=== PATIENT | male | born 1960 | race Caucasian/White ===

== ENCOUNTER 2018-09-08 09:59 | Outpatient (REF) | payer OTHER, SELFPAY ==
[2018-09-08 19:42] LABS: ALT 22 U/L (12-78); AST 13 U/L (15-37); Albumin 4.2 g/dL (3.4-5.0); Alkaline Phosphatase 67 U/L (46-116); Anion Gap 7.8 mmol/L (3-11); BUN 21 mg/dL (7-18); Bilirubin, Total 0.5 mg/dL (0.2-1.0); CO2 28.2 mmol/L (21.0-32.0); Calcium 8.8 mg/dL (8.5-10.1); Chloride 104 mmol/L (98-107); Cholesterol 249 mg/dL (50-200); Glucose 104 mg/dL (70-100); HDL Cholesterol 54 mg/dL (40-60); LDL CHOLESTEROL 169 mg/dL (<100); Sodium 140 mmol/L (136-145); Total Protein 7.2 g/dL (6.4-8.2); Triglyceride 98 mg/dL (30-150)
== END 2018-09-08 10:19 ==
LOC: NCHCN 09:59
PROVIDERS: PCP Physician Assistant Medical; Visit Provider Physician Assistant Medical
DX: Z00.00 Encounter for general adult medical examination without abnormal findings (principal); Z13.228 Encounter for screening for other metabolic disorders; Z13.220 Encounter for screening for lipoid disorders
CPT/HCPCS: 80053; 80061; 83721

== ENCOUNTER 2019-03-24 09:02 | Outpatient (REF) | payer OTHER, SELFPAY | END 2019-03-24 09:22 | LOC: NCHCN 09:02 | PROVIDERS: PCP Physician Assistant Medical; Visit Provider Physician Assistant Medical | DX: R69 Illness, unspecified (principal) ==

== ENCOUNTER 2019-03-25 07:14 | Outpatient (CLI) | payer OTHER, SELFPAY ==
[2019-03-25 08:41] LABS: Hemoglobin A1C 5.3 % (4.5-6.2)
[2019-03-25 09:01] LABS: Calculated LDL 153 mg/dL; Cholesterol 234 mg/dL (50-200); HDL Cholesterol 68 mg/dL (40-60); Triglyceride 67 mg/dL (30-150)
== END 2019-03-25 07:34 ==
PROVIDERS: PCP Physician Assistant Medical; Visit Provider Physician Assistant Medical
DX: E78.5 Hyperlipidemia, unspecified (principal); R73.01 Impaired fasting glucose
CPT/HCPCS: 36415; 80061; 83721; 83036

== ENCOUNTER 2019-07-20 08:44 | Outpatient (REF) | payer OTHER, SELFPAY ==
[2019-07-20 22:16] LABS: ALT 29 U/L (16-63); AST 17 U/L (15-37); Albumin 4.3 g/dL (3.4-5.0); Alkaline Phosphatase 56 U/L (46-116); Anion Gap 10.5 mmol/L (3-11); BUN 17 mg/dL (7-18); Bilirubin, Total 0.6 mg/dL (0.2-1.0); CO2 25.5 mmol/L (21.0-32.0); CREATININE 1.03 mg/dL (0.70-1.30); Calcium 8.8 mg/dL (8.5-10.1); Calculated LDL 115 mg/dL; Chloride 103 mmol/L (98-107); Cholesterol 193 mg/dL (50-200); Glucose 98 mg/dL (70-100); HDL Cholesterol 63 mg/dL (40-60); Potassium 4.5 mmol/L (3.5-5.1); Sodium 139 mmol/L (136-145); Total Protein 7.3 g/dL (6.4-8.2); Triglyceride 77 mg/dL (30-150)
== END 2019-07-20 09:04 ==
LOC: NCHCN 08:44
PROVIDERS: PCP Physician Assistant Medical; Visit Provider Physician Assistant Medical
DX: E78.5 Hyperlipidemia, unspecified (principal); Z51.81 Encounter for therapeutic drug level monitoring
CPT/HCPCS: 80053; 80061

== ENCOUNTER 2020-05-20 01:03 | Outpatient (CLI) | payer OTHER, SELFPAY ==
[2020-05-21 20:29] LABS: COVID-19 RT-PCR Result NEGATIVE (Negative)
== END 2020-05-20 01:23 ==
PROVIDERS: PCP Physician Assistant Medical; Visit Provider Student in an Organized Health Care Education/Training Program
DX: G56.01 Carpal tunnel syndrome, right upper limb (principal); G56.21 Lesion of ulnar nerve, right upper limb; M77.01 Medial epicondylitis, right elbow
CPT/HCPCS: U0003

== ENCOUNTER 2020-05-25 06:12 | Day surgery (SDC) | payer OTHER, SELFPAY ==
[2020-05-25 06:31] VITALS: BP 131/94; PULSE 58; RESP 18; TEMP 36.2; O2SAT 94
[2020-05-25] MEDS: Lactated Ringers 1,000 ML 80 ML IV (06:50)
--- NOTE | 2020-05-25 07:10 | PDOC.DSDIS_ITS ---
Discharge Plan Disposition Patient Disposition: HOME Condition: Good Discharge Details Reason For Visit: Right Cubital and Carpal Tunnel Syndromes Attending Provider: Elijah Lopes Primary Care Provider: Junior Sanderson Home Meds and New Rx's Prescriptions: New hydrocodone-acetaminophen 5-325 mg tablet 1 tab PO Q4H PRN (Reason: pain) Qty: 10 RF: 0 acetaminophen 500 mg tablet 500 mg PO Q6H PRN PRN (Reason: pain) Qty: 60 RF: 3 ibuprofen 600 mg tablet 600 mg PO TID PRNQty: 60 RF: 3 Continued amitriptyline 25 mg tablet 25 mg PO DAILY RF: 0 atorvastatin 10 mg tablet 10 mg PO DAILY RF: 0 sildenafil 50 mg tablet 50 mg PO DAILY PRNRF: 0 tamsulosin [Flomax] 0.4 MG capsule 0.4 mg PO DAILY RF: 0 lisinopril 5 MG tablet 5 mg PO DAILY RF: 0 Fish Oil 1 EACH capsule 1 ea PO DAILY RF: 0 omeprazole 40 MG capsule,delayed release(DR/EC) 40 mg PO DAILY@0730 Qty: 30 RF: 5 Discontinued ibuprofen 200 mg Capsule 200 mg PO Q6H PRNRF: 0 Discharge Instructions Additional Instructions: Activity: You should stay in the sling for the first 2 weeks. You may come out of the sling for gentle motion and hygiene but should largely remain in the sling to allow the incision site to heal. Gentle motion of the elbow, hand, wrist, and fingers is okay and encouraged after the first few days, but no repetitive activities nor heavy lifting. You may apply ice. Medications: - You should take Tylenol and Ibuprofen around the clock. - You have been prescribed Hydrocodone for breakthrough pain. Dressings: - The initial surgical dressing should stay in place for 3 days. It may then be removed and kept clean and dry. You should cover with a light gauze dressing or bandaid. - You may shower after 3 days and get the wound wet. Follow-up: 10 days Referrals: Elijah Lopes MD [ [facility] STAFF PHYSICIAN] - Equipment/Supplies: Sling Activity:: Activity as Tolerated Remove Dressings/Wound Care:: 72 hours Shower/Bathe:: 72 hours Diet:: As Tolerated Discharge Orders Discharge Orders: Discharge Order (Routine); Ordered 05/25/20 Ordered By: Elijah Lopes DS: Diagnosis Discharge Diagnosis (1) Right carpal tunnel syndrome: Status: Acute (2) Cubital tunnel syndrome on right: Status: Acute
[2020-05-25] MEDS: ceFAZolin 2 GM/50 ML BAG IVPB (07:29)
[2020-05-25] MEDS: Sodium Bicarbonate 50 MEQ/50 ML VIAL (07:53)
[2020-05-25 09:06] VITALS: BP 132/86; PULSE 58; RESP 18; TEMP 36; O2SAT 97
--- NOTE | 2020-05-25 10:29 | ROE_ITS ---
Date of service: 05/25/20 Time of Service: 08:20 Operative Note Operative Note DATE OF PROCEDURE: 05/25/20 PRE-OP DIAGNOSIS: Right Carpal Tunnel and Right Cubital Tunnel Syndrome POST-OP DIAGNOSIS: same PROCEDURE: Right Endoscopic Carpal Tunnel Release and Right Cubital Tunnel Decompression SURGEON: Elijah Lopes BIOMEDICAL ENGINEER: Elle Rich ANESTHESIA: GETA ESTIMATED BLOOD LOSS: 0 PATHOLOGY: none sent TOURNIQUET TIME: 24 COMPLICATIONS: None Patient was transported to: PACU Patient's condition: stable Indications: Edwin is a 59 year old male who has had symptoms of carpal and cubital tunnel syndrome. Nonoperative treatment options had been trialed. Nerve conduction studies identified the carpal and cubital tunnel as the point of compression. Given failure of nonoperative treatments and persistent symptoms, I offered operative intervention. I reviewed the technical details of a carpal tunnel release and cubital tunnel decompression with possible anterior subcutaneous transposition. I reviewed the risk of the procedure to include bleeding, infection, pain, stiffness, tendon instability, damage to the superfi cial radial nerve, and complete release. Despite these risks, the patient elected to proceed. Findings: The carpal tunnel was release with a standard endoscopic technique without difficulty and excellent visualization. There was a tightened cubital tunnel. [OTHER] The ulnar nerve was release from the first motor branch distally through the [place] proximally. Procedure Description: Edwin was greeted in the preoperative holding area where the correct side was identified and marked. The consent was reviewed with the patient and signed. The history and physical was updated. All questions were answered. Edwin was taken back to the operating room. The patient was placed into the s upine position on the operating room table with the right arm on an arm board. A nonsterile tourniquet was placed high onto the arm, into the axilla. All bony prominences were well padded. Prophylactic antibiotics in the form of Cefazolin were administered. The right arm was then prepped with Chloraprep and draped in a standard fashion with stockinette and extremity drape. A timeout to confirm correct identity, side and site, procedure, allergies, anesthesia, and medical concerns was performed. The surgical site was marked in the volar wrist creases in line with the radial border of the fourth ray. This area was anesthetized with approximately 6cc of 1% Lidocaine. The limb was then exsanguinated with an Esmarch. The skin was incised with a 15 blade, approximately 1cm. The skin only was cut and the deeper tissue was dissected bluntly with a tenotomy scissor, avoiding passing nerve and venous structures. The fascia was penetrated and opened bluntly. A two-prong skin hook was placed under this proximal fascial edge. A series of hamate finders were used to identify and dilate the carpal tunnel. Synovial elevator was used to free synovial attachments to the underside of the transverse carpal ligament. My thumb was kept in the palm to cassandra the distal extent of the carpal tunnel and correctly position the hand. The Microaire endoscope was inserted without difficulty and without resistance. Excellent visualization showed horizontally running fibers of the transverse carpal ligament (TCL). The distal extent of the TCL was visualized and the end of the scope palpated with the thumb. The blade was elevated and withdrawn from distal to proximal. The TCL was split into two flaps. The endoscope was reinserted to confirm complete release and any remnant ligament was incised. The scope was withdrawn and the proximal aspect of the carpal tunnel was grossly inspected and appeared release with the median nerve visible. The antebrachial fascia at the level of the wrist was then freed from the overlying skin and then the underlying median nerve with blunt dissection. This was transected longitudinally for about 3cm proximal to the wrist incision. The wound was then irrigated with easy flow of irrigant distally and proximally. The incision was closed with a single 4-0 Nylon suture. The wound was dressed with Xeroform, Gauze, Kerlix. Attention was then turned to the elbow. The surgical site was drawn on the skin as was the medial epicondyle borders. The planned surgical field was anesthetized with 1% Lidocaine with epinephrine. The limb was exsanguinated and the tourniquet was inflated where it stayed for 24 minutes. A 6 cm incision was made curvilinearly around the medial elbow. The skin was incised only. The deep tissue and subcutaneous fat was dissected with a tenotomy scissors trying to protect any branches of the medial antebrachial cutaneous nerve. Any branches that were identified were retracted out of the way. The ulnar nerve was palpated and identified. A small window into the cubital tunnel, sheath overlying the nerve, was created and the nerve was able to be palpated with the [place]. A Metzenbaum scissor was then used to open up the sheath starting with Dias's ligament. I then worked distal over the ulnar nerve releasing any constraints against the nerve all the way to the fascia of the FCU muscle belly. This muscle belly was bluntly all the way down to the first motor branch of the ulnar nerve and the overlying fascia was incised. Likewise starting there at the lateral epicondyle, I proceeded to work proximally to release any constraints over the ulnar nerve. This was taken all the way to the arcade of [place]. The medial intermuscular septum was also palpated and any sharp edges against the ulnar nerve were resected and released. After fully releasing the nerve it was inspected visually. I was also able to palpate the nerve fully and reach one finger up into the proximal and distal aspects to make sure there were no constraints against the nerve. A freer elevator was also used to slide easily against the ulnar nerve without any points of constriction. The arm was then taken through range of motion. The ulnar nerve did not sublux/dislocate out of its groove behind the lateral epicondyle. Therefore, no transposition was performed. The tourniquet was then deflated. Any areas of bleeding were cauterized with bipolar electrocautery. The wound was thoroughly irrigated. The deep tissue was closed with a 3-0 Vicryl. The skin was closed with a 4-0 nylon. The wound was dressed with Xeroform, 4 x 4's, ABD, Kerlix and an Jeromy wrap. Edwin was placed into a sling. Edwin was transferred back to the PACU in a stable condition.
== END 2020-05-25 09:55 | disposition home or self-care (01) ==
PROVIDERS: PCP Physician Assistant Medical; Visit Provider Student in an Organized Health Care Education/Training Program
PROC: 01N54ZZ Release Median Nerve, Percutaneous Endoscopic Approach (ICD-10-PCS; CPT 29848; principal; 2020-05-25 07:30)
DX: G56.01 Carpal tunnel syndrome, right upper limb (principal); G56.21 Lesion of ulnar nerve, right upper limb
CPT/HCPCS: 64719; 29848; J0690; J1100; J1885; J2001; J2405; L3650

== ENCOUNTER 2020-08-26 09:18 | Outpatient (CLI) | payer BC, SELFPAY ==
[2020-08-29 17:08] LABS: COVID-19 RT-PCR Result NEGATIVE (Negative)
== END 2020-08-26 09:38 ==
PROVIDERS: PCP Physician Assistant Medical; Visit Provider Student in an Organized Health Care Education/Training Program
DX: Z11.59 Encounter for screening for other viral diseases (principal); Z01.818 Encounter for other preprocedural examination
CPT/HCPCS: U0003

== ENCOUNTER 2020-08-30 09:28 | Day surgery (SDC) | payer BC, SELFPAY ==
--- NOTE | 2020-08-30 08:32 | W.PM.DSUDISC ---
Documented by User: Elle Rich 08/30/20 09:57 Discharge Plan Disposition Patient Disposition: HOME Condition: Good Discharge Details Reason For Visit: Right carpal tunnel syndrome Attending Provider: Elijah Lopes Primary Care Provider: Junior Sanderson Home Meds and New Rx's Prescriptions: Continued atorvastatin 10 mg tablet 10 mg PO DAILY RF: 0 sildenafil 50 mg tablet 50 mg PO DAILY PRNRF: 0 tamsulosin [Flomax] 0.4 MG capsule 0.4 mg PO DAILY RF: 0 lisinopril 5 MG tablet 5 mg PO DAILY RF: 0 Fish Oil 1 EACH capsule 1 ea PO DAILY RF: 0 omeprazole 40 MG capsule,delayed release(DR/EC) 40 mg PO DAILY@0730 Qty: 30 RF: 5 Discontinued acetaminophen 500 mg tablet 500 mg PO Q6H PRN PRN (Reason: pain) Qty: 60 RF: 3 ibuprofen 600 mg tablet 600 mg PO TID PRNQty: 60 RF: 3 Discharge Instructions Additional Instructions: Open Carpal Tunnel Release Discharge Instructions Activity: You should keep the hand/wrist elevated as much as possible for the first few days. You may use the other fingers as tolerated but avoid trying to do too much too soon. You may perform light activities with the dressing in place. The splint may be used to help support the wrist for pain control. You may remove it as you'd desire to work on gentle motion. Avoid strenuous or repetitive gripping. Dressing: You should keep the dressing in place for 3 days. After that you may remove dressing and cover incision with a light gauze dressing or large band-aid. Medications: - You should take Tylenol and Ibuprofen for baseline pain control. - You were previously prescribed a stronger pain medication, Hydrocodone-Acetaminophen, for breakthrough pain that you may take if needed. - You may apply ice over the wrist, just double bag so it doesn't get wet. Follow-up: 7-10 days Referrals: Elijah Lopes MD [ [facility] STAFF PHYSICIAN] - Equipment/Supplies: Splint and Sling Activity:: Elevate Remove Dressings/Wound Care:: 72 hours Shower/Bathe:: 72 hours Activity:: Activity as Tolerated Diet:: As Tolerated Discharge Orders Discharge Orders: Discharge Order (Routine); Ordered 08/30/20 Ordered By: Elle Rich DS: Diagnosis Discharge Diagnosis (1) Right carpal tunnel syndrome: Status: Acute Documented by User: Elijah Lopes MD 08/30/20 11:24 Discharge Plan Disposition Patient Disposition: HOME Condition: Good Discharge Details Reason For Visit: Right carpal tunnel syndrome Attending Provider: Elijah Lopes Primary Care Provider: Junior Sanderson Home Meds and New Rx's Prescriptions: Continued atorvastatin 10 mg tablet 10 mg PO DAILY RF: 0 sildenafil 50 mg tablet 50 mg PO DAILY PRNRF: 0 tamsulosin [Flomax] 0.4 MG capsule 0.4 mg PO DAILY RF: 0 lisinopril 5 MG tablet 5 mg PO DAILY RF: 0 Fish Oil 1 EACH capsule 1 ea PO DAILY RF: 0 omeprazole 40 MG capsule,delayed release(DR/EC) 40 mg PO DAILY@0730 Qty: 30 RF: 5 Discontinued acetaminophen 500 mg tablet 500 mg PO Q6H PRN PRN (Reason: pain) Qty: 60 RF: 3 ibuprofen 600 mg tablet 600 mg PO TID PRNQty: 60 RF: 3 Discharge Instructions Additional Instructions: Open Carpal Tunnel Release Discharge Instructions Activity: You should keep the hand/wrist elevated as much as possible for the first few days. You may use the other fingers as tolerated but avoid trying to do too much too soon. You may perform light activities with the dressing in place. The splint may be used to help support the wrist for pain control. You may remove it as you'd desire to work on gentle motion. Avoid strenuous or repetitive gripping. Dressing: You should keep the dressing in place for 3 days. After that you may remove dressing and cover incision with a light gauze dressing or large band-aid. Medications: - You should take Tylenol and Ibuprofen for baseline pain control. - You were previously prescribed a stronger pain medication, Hydrocodone-Acetaminophen, for breakthrough pain that you may take if needed. - You may apply ice over the wrist, just double bag so it doesn't get wet. Follow-up: 7-10 days Referrals: lEijah Lopes MD [ [facility] STAFF PHYSICIAN] - Equipment/Supplies: Splint and Sling Activity:: Elevate Remove Dressings/Wound Care:: 72 hours Shower/Bathe:: 72 hours Activity:: Activity as Tolerated Diet:: As Tolerated Discharge Orders Discharge Orders: Discharge Order (Routine); Ordered 08/30/20 Ordered By: Elle Rich
[2020-08-30 10:02] VITALS: BP 128/90; PULSE 54; RESP 18; TEMP 36.4; O2SAT 93
[2020-08-30] MEDS: Lactated Ringers 1,000 ML 80 ML IV (10:15)
[2020-08-30] MEDS: ceFAZolin 2 GM/50 ML BAG IVPB (10:30)
[2020-08-30] MEDS: Sodium Bicarbonate 50 MEQ/50 ML VIAL (11:19)
--- NOTE | 2020-08-30 11:24 | W.PM.OP ---
Date of service: 08/30/20 Time of Service: 11:24 Operative Note Operative Note DATE OF PROCEDURE: 08/30/20 PRE-OP DIAGNOSIS: Right Carpal Tunnel Syndrome POST-OP DIAGNOSIS: same PROCEDURE: Open Carpal Tunnel Release - Right SURGEON: Elijah Lopes ANESTHESIA: MAC ESTIMATED BLOOD LOSS: 10 PATHOLOGY: none sent TOURNIQUET TIME: 0 COMPLICATIONS: None Patient was transported to: same day Patient's condition: stable Indications: Edwin is a 59 year old male who I have seen for carpal tunnel syndrome. He underwent in the scopic carpal tunnel release but never had an improvement in symptoms. We follow this conservatively and repeat nerve conduction studies now show any changes and therefore I recommended that we perform a revision carpal tunnel release in an open fashion. I reviewed the risk of the procedure to include bleeding, infection, pain, stiffness, continued numbness, damage to nerves and vessels, damage to muscles and tendons, need for repeat procedures. Despite these risk, Edwin desired to proceed. Findings: There was a tightened transverse carpal ligament. There was an obvious area that was previously released on the ulnar aspect of the transverse carpal ligament however it did not seem to be full-thickness and there was one band at the distal extent which do not seem to be released fully. Interestingly, the median nerve was quite adherent to the undersurface of the transverse carpal ligament. It was released fully released. The median nerve was inspected and showed no signs of adhesions or injury. Procedure Description: Edwin was greeted in the preoperative holding area. The correct site was identified and marked. The consent was reviewed the patient and signed. The history physical was updated. Patient was taken back to the operating room and placed in the supine position with the right hand placed on a hand table. A nonsterile tourniquet was placed high up onto the arm. The hand and forearm was then prepped with ChloraPrep and draped in standard fashion. Prophylactic antibiotics in the form of Cefazolin were given. A timeout was performed for safe surgery. The surgical site was then injected and anesthetized with 1% lidocaine with epinephrine buffered with sodium bicarbonate. The radial border of the fourth ray was marked on the skin as well as any other pertinent surface anatomy. The limb was exsanguinated and cuff inflated to 250 mmHg. Using 15 blade the skin was incised sharply. Blunt dissection was carried down to the level of the palmar fascia. There is any amount of bleeding the hand had a purplish red color which indicated that the tourniquet was not working properly so the tourniquet was deflated after only a few minutes and was not reinflated. I inspected the transverse carpal ligament which shows some diastases on the ulnar aspect where the previous release was likely performed. However, there was no complete separation transverse carpal ligament superficially. Additionally, there seem to be a tight band just distal to this as well. I used this unable to place a [place] underneath the transverse carpal ligament and then cut down sharply onto the [place]. Using the [place] to protect underlying tendons and the median nerve, I released the remainder of the transverse carpal ligament. It was notably thickened and tight. Interestingly, there is notable adhesion of the median nerve to the undersurface of the transverse carpal ligament. The nerve did look quite inflamed. I performed a neurolysis gently around the median nerve to free it from the overlying transverse carpal ligament and from some of the synovium within the carpal tunnel. The nerve was inspected and showed no signs of direct injury or trauma. A scissor was used to complete the far aspects after making sure there is no interposed tissue. I did not perform a complete synovectomy was in the carpal tunnel nor a complete neurolysis simply enough to remove any adhesions from median nerve and surrounding tissue. The wound was then fully irrigated. The skin and deeper tissues were closed with a interrupted 4-0 nylon suture. No excessive bleeding from the wound. 4 x 4 gauze was applied followed by Kerlix wrap and an Jeromy wrap. The hand was placed into a removable brace. At the end the case all counts are correct. The patient tolerated the procedure well and was transferred back to the day surgery area in a stable condition.
[2020-08-30 11:52] VITALS: BP 124/82; PULSE 50; RESP 18; TEMP 36.3; O2SAT 93
== END 2020-08-30 12:20 | disposition home or self-care (01) ==
LOC: SUR 08-31 09:25 → PDS 08-31 09:26
PROVIDERS: PCP Physician Assistant Medical; Visit Provider Student in an Organized Health Care Education/Training Program
PROC: (CPT 64721; principal; 2020-08-30 11:00)
DX: G56.01 Carpal tunnel syndrome, right upper limb (principal); M96.89 Other intraoperative and postprocedural complications and disorders of the musculoskeletal system; G56.11 Other lesions of median nerve, right upper limb
CPT/HCPCS: 64721; J0690; J1885; J2001; J2405; J2704

== ENCOUNTER 2020-11-16 13:20 | Outpatient (REF) | payer BC, SELFPAY ==
[2020-11-16 16:14] LABS: Abs Immature Grans 0.02 10^3/uL (0.0-0.06); Absolute Basophil Count 0.04 10^3/uL (0.0-0.2); Absolute Eosinophil Count 0.37 10^3/uL (0.0-0.7); Absolute Lymphocyte Count 1.51 10^3/uL (1.2-3.4); Absolute Monocyte Count 0.77 10^3/uL (0.1-0.8); Absolute Neutrophil Count 3.57 10^3/uL (1.2-6.7); Basophils % 0.6; Eosinophils % 5.9; HCT 44.7 % (40.0-50.0); HGB 15.1 g/dL (13.5-17.5); Immature Grans % 0.3; MCH 30.2 pg (27.0-33.0); MCHC 33.8 % (32.0-36.0); MCV 89.4 fL (80-95); MPV 10.6 fL (8.0-11.0); Monocytes % 12.3; Neutrophils % 56.9; Nucleated RBC 0 %; Platelet Count 266 10^3/uL (130-400); RDW 12.7 % (11.8-14.1); RDW-SD 41.6 fL; WBC 6.28 10^3/uL (4.4-10.8)
[2020-11-16 17:47] LABS: BUN 22 mg/dL (7-18); Calcium 9.3 mg/dL (8.5-10.1); Calculated LDL 84 mg/dL (<100); Chloride 103 mmol/L (98-107); Cholesterol 164 mg/dL (<200); Glucose 79 mg/dL (74-106); HDL Cholesterol 64 mg/dL (40-60); Potassium 4.9 mmol/L (3.5-5.1); Sodium 139 mmol/L (136-145); Triglyceride 84 mg/dL (<150)
== END 2020-11-16 13:21 | disposition home or self-care (01) ==
LOC: NCHCN 13:20
PROVIDERS: PCP Physician Assistant Medical; Visit Provider Physician Assistant Medical
DX: R06.00 Dyspnea, unspecified (principal); I10 Essential (primary) hypertension
CPT/HCPCS: 80048; 80061; 85025

== ENCOUNTER 2020-11-18 03:48 | Outpatient (CLI) | payer BC, SELFPAY ==
--- NOTE | 2020-11-18 09:57 | DI.RAD_ITS ---
EXAM: XR CHEST 2V PA LATERAL CLINICAL HISTORY: DYSPNEA, NEG COVID TEST TECHNIQUE: 2D digital imaging was performed. COMPARISON: CT CT CHEST W from 12/20/2017 FINDINGS: The heart size is normal. The aorta is tortuous but normal in diameter. The lungs are clear. No in filtrate, effusion or pulmonary edema is seen. There are no visible emphysematous or fibrotic change s. There are minimal degenerative changes in the spine. IMPRESSION: No acute pulmonary findings. DATA REPOSITORY: RADIATION DOSE DELIVERED:
== END 2020-11-18 04:08 ==
PROVIDERS: PCP Physician Assistant Medical; Visit Provider Physician Assistant Medical
DX: R06.09 Other forms of dyspnea (principal)
CPT/HCPCS: 71046

== ENCOUNTER 2021-04-14 16:20 | Outpatient (REF) | payer BC, SELFPAY ==
[2021-04-16 11:03] LABS: COVID-19 RT-PCR UVMMC Result Negative (Negative)
== END 2021-04-14 16:21 | disposition home or self-care (01) ==
LOC: NCHCN 16:20
PROVIDERS: PCP Physician Assistant Medical; Visit Provider Physician Assistant Medical
DX: Z20.822 Contact with and (suspected) exposure to COVID-19 (principal)
CPT/HCPCS: U0003

== ENCOUNTER 2021-04-19 19:00 | Outpatient (REF) | payer BC, SELFPAY ==
[2021-04-21 15:38] LABS: COVID-19 RT-PCR UVMMC Result Negative (Negative)
== END 2021-04-19 19:01 | disposition home or self-care (01) ==
LOC: NCHCN 19:00
PROVIDERS: PCP Physician Assistant Medical; Visit Provider Physician Assistant Medical
DX: Z20.822 Contact with and (suspected) exposure to COVID-19 (principal)
CPT/HCPCS: U0003

== ENCOUNTER 2021-07-10 12:08 | Outpatient (REF) | payer BC, SELFPAY ==
[2021-07-12 12:06] LABS: COVID-19 RT-PCR UVMMC Result Negative (Negative)
== END 2021-07-10 12:09 | disposition home or self-care (01) ==
LOC: NCHCN 12:08
PROVIDERS: PCP Physician Assistant Medical; Visit Provider Physician Assistant Medical
DX: Z20.822 Contact with and (suspected) exposure to COVID-19 (principal); J18.9 Pneumonia, unspecified organism
CPT/HCPCS: U0003

== ENCOUNTER 2021-10-09 15:08 | Outpatient (REF) | payer BC, SELFPAY ==
[2021-10-09 21:25] LABS: Abs Immature Grans 0.03 10^3/uL (0.0-0.06); Absolute Basophil Count 0.03 10^3/uL (0.0-0.2); Absolute Eosinophil Count 0.29 10^3/uL (0.0-0.7); Absolute Lymphocyte Count 1.58 10^3/uL (1.2-3.4); Absolute Monocyte Count 0.57 10^3/uL (0.1-0.8); Absolute Neutrophil Count 4.61 10^3/uL (1.2-6.7); Basophils % 0.4; Eosinophils % 4.1; HCT 44.3 % (40.0-50.0); HGB 14.5 g/dL (13.5-17.5); Immature Grans % 0.4; Lymphocytes % 22.2; MCH 30.2 pg (27.0-33.0); MCHC 32.7 % (32.0-36.0); MCV 92.3 fL (80-95); MPV 10.4 fL (8.0-11.0); Neutrophils % 64.9; Nucleated RBC 0 %; Platelet Count 329 10^3/uL (130-400); RDW 13.3 % (11.8-14.1); RDW-SD 45.6 fL; WBC 7.11 10^3/uL (4.4-10.8)
[2021-10-09 21:51] LABS: ALT 26 U/L (16-63); AST 19 U/L (15-37); Albumin 4.2 g/dL (3.4-5.0); Alkaline Phosphatase 64 U/L (46-116); Anion Gap 9.9 mmol/L (3-11); BUN 15 mg/dL (7-18); Bilirubin, Total 0.5 mg/dL (0.2-1.0); CO2 25.1 mmol/L (21.0-32.0); CREATININE 0.9 mg/dL (0.70-1.30); Calcium 8.7 mg/dL (8.5-10.1); Chloride 102 mmol/L (98-107); Glucose 85 mg/dL (74-106); Potassium 4.7 mmol/L (3.5-5.1); Sodium 137 mmol/L (136-145); Total Protein 7.2 g/dL (6.4-8.2)
== END 2021-10-09 15:09 | disposition home or self-care (01) ==
LOC: NCHCN 15:08
PROVIDERS: PCP Physician Assistant Medical; Visit Provider Physician Assistant Medical
DX: J18.9 Pneumonia, unspecified organism (principal)
CPT/HCPCS: 80053; 85025

== ENCOUNTER 2021-10-27 00:27 | Outpatient (CLI) | payer BC, SELFPAY ==
--- NOTE | 2021-10-27 | DI.CT_ITS ---
Exam(s) CT CHEST W EXAM: CT CHEST W CLINICAL HISTORY: PNEUMONIA, J18.9 TECHNIQUE: Imaging Protocol: Axial computed tomography images with coronal and sagittal reformatted images were created and reviewed CONTRAST MATERIAL: Intravenous: Omnipaque 350 Contrast volume:100 mL. COMPARISON: CT CT CHEST W from 12/20/[address] ABDOMEN PELVIS W from 12/20/2017 FINDINGS: The examination is limited due to patient motion artifact. Tracheobronchial tree: Patent where visualized. Pulmonary parenchyma: No consolidation or dominant measurable mass. No architectural distortion. Mediastinum and [place]: No dominant adenopathy or fluid collection. Small hiatal hernia. Esophagus is otherwise unremarkable. Thyroid gland: Unremarkable. Pleura: No effusion or pneumothorax. Heart: The heart is not dilated. Coronary artery calcifications are present. No pericardial effusion . Aorta: Thoracic aorta non-dilated. Mild atherosclerosis. Upper abdomen: Unremarkable. Pulmonary arteries: Enhancement of the pulmonary arteries is inadequate for evaluation of pulmonary e mboli. Lymph nodes: Within normal limits. Bones: Within normal limits for the patient's age. Soft tissues: Unremarkable. IMPRESSION: No acute pulmonary process. RADIATION DOSE DELIVERED: 595.1mGy.cm Total DLP DATA REPOSITORY: All CT scans at this facility are submitted to the National Radiology Data Registry (NRDR) Dose Index Registry (DIR) with the [employer] (A[employer]). RADIATION OPTIMIZATION: All CT scans at this facility use at least one of these dose optimization te chniques: automated exposure control; mA and/or kV adjustment per patient size (includes targeted exa ms where dose is matched to clinical indication); or iterative reconstruction.
[2021-10-27] MEDS: Omnipaque 350 MG/ML 100 ML BTL IJ (07:51)
== END 2021-10-27 00:47 ==
PROVIDERS: PCP Physician Assistant Medical; Visit Provider Physician Assistant Medical
DX: J18.9 Pneumonia, unspecified organism (principal)
CPT/HCPCS: 71260; J3490

== ENCOUNTER 2021-12-28 13:16 | Outpatient (REF) | payer BC, SELFPAY ==
[2021-12-28 15:49] LABS: Abs Immature Grans 0.03 10^3/uL (0.0-0.06); Absolute Basophil Count 0.05 10^3/uL (0.0-0.2); Absolute Eosinophil Count 0.64 10^3/uL (0.0-0.7); Absolute Lymphocyte Count 1.23 10^3/uL (1.2-3.4); Absolute Monocyte Count 0.51 10^3/uL (0.1-0.8); Absolute Neutrophil Count 5.33 10^3/uL (1.2-6.7); Basophils % 0.6; Eosinophils % 8.2; HCT 45.4 % (40.0-50.0); Immature Grans % 0.4; Lymphocytes % 15.8; MCH 29.9 pg (27.0-33.0); MCV 90.4 fL (80-95); MPV 10.5 fL (8.0-11.0); Monocytes % 6.5; Neutrophils % 68.5; Platelet Count 316 10^3/uL (130-400); RBC 5.02 10^6/uL (4.36-5.78); RDW 13.1 % (11.8-14.1); RDW-SD 43.7 fL; WBC 7.79 10^3/uL (4.4-10.8)
[2021-12-28 16:44] LABS: Anion Gap 7.4 mmol/L (3-11); BUN 20 mg/dL (7-18); CO2 27.6 mmol/L (21.0-32.0); Calcium 8.8 mg/dL (8.5-10.1); Chloride 104 mmol/L (98-107); Glucose 112 mg/dL (74-106); Magnesium 1.9 mg/dL (1.8-2.4); Potassium 4.4 mmol/L (3.5-5.1); Sodium 139 mmol/L (136-145); TSH (W/Ref FT4) 0.47 uIU/mL (0.36-3.74)
== END 2021-12-28 13:17 | disposition home or self-care (01) ==
LOC: LBN 13:16
PROVIDERS: PCP Physician Assistant Medical; Visit Provider Family Medicine
DX: R00.2 Palpitations (principal)
CPT/HCPCS: 80048; 83735; 84443; 85025

== ENCOUNTER 2022-01-01 05:24 | Outpatient (CLI) | payer BC, SELFPAY ==
[2022-01-01] MEDS: Methacholine 100 MG VIAL IH (09:32)
[2022-01-01] MEDS: Albuterol HFA 18 GM 200 PUFF INH IH (09:32)
[2022-01-01] MEDS: Inhaler, Assist Device 1 EACH MC (09:32)
== END 2022-01-01 05:25 | disposition home or self-care (01) ==
LOC: NCHCN 05:25 → RT 09:13
PROVIDERS: PCP Physician Assistant Medical; Visit Provider Physician Assistant Medical
DX: R06.00 Dyspnea, unspecified (principal); R05.3 Chronic cough; Z86.16 Personal history of COVID-19; Z87.891 Personal history of nicotine dependence; Z77.090 Contact with and (suspected) exposure to asbestos; T75.89XA Other specified effects of external causes, initial encounter; R94.2 Abnormal results of pulmonary function studies
CPT/HCPCS: 94060; 94070; 94726; 94729; 94010; J7674

== ENCOUNTER 2022-01-10 16:39 | Outpatient (REF) | payer BC, SELFPAY ==
[2022-01-10 17:25] LABS: Calculated LDL 114 mg/dL (<100); Cholesterol 216 mg/dL (<200); HDL Cholesterol 88 mg/dL (40-60); Triglyceride 74 mg/dL (<150)
== END 2022-01-10 16:40 | disposition home or self-care (01) ==
LOC: NCHCN 16:39
PROVIDERS: PCP Physician Assistant Medical; Visit Provider Physician Assistant Medical
DX: E78.5 Hyperlipidemia, unspecified (principal)
CPT/HCPCS: 80061

== ENCOUNTER 2022-02-14 04:17 | Outpatient (CLI) | payer BC, SELFPAY | END 2022-02-14 04:18 | disposition home or self-care (01) | LOC: RT 04:17 | PROVIDERS: PCP Physician Assistant Medical; Visit Provider Physician Assistant Medical | DX: R00.2 Palpitations (principal) | CPT/HCPCS: 93246 ==

== ENCOUNTER 2022-05-08 19:20 | Outpatient (REF) | payer BC, SELFPAY ==
[2022-05-08 15:35] LABS: Abs Immature Grans 0.03 10^3/uL (0.0-0.06); Absolute Basophil Count 0.04 10^3/uL (0.0-0.2); Absolute Eosinophil Count 0.34 10^3/uL (0.0-0.7); Absolute Lymphocyte Count 1.55 10^3/uL (1.2-3.4); Absolute Monocyte Count 0.52 10^3/uL (0.1-0.8); Absolute Neutrophil Count 3.44 10^3/uL (1.2-6.7); Basophils % 0.7; ESR 1 mm/hr (0-20); Eosinophils % 5.7; HCT 42.8 % (40.0-50.0); HGB 14.3 g/dL (13.5-17.5); Immature Grans % 0.5; Lymphocytes % 26.2; MCH 30.7 pg (27.0-33.0); MCHC 33.4 % (32.0-36.0); MCV 92 fL (80-95); MPV 10.4 fL (8.0-11.0); Monocytes % 8.8; Neutrophils % 58.1; Platelet Count 270 10^3/uL (130-400); RBC 4.66 10^6/uL (4.36-5.78); RDW 12.5 % (11.8-14.1); RDW-SD 41.5 fL; WBC 5.92 10^3/uL (4.4-10.8)
[2022-05-08 16:05] LABS: C-Reactive Protein 0.07 mg/dL (0.0-0.3); Uric Acid 6.7 mg/dL (3.5-7.2)
== END 2022-05-08 19:21 | disposition home or self-care (01) ==
LOC: NCHCN 19:20
PROVIDERS: PCP Physician Assistant Medical; Visit Provider Physician Assistant Medical
DX: M25.531 Pain in right wrist (principal)
CPT/HCPCS: 85652; 84550; 85025; 86140

== ENCOUNTER → 2022-05-08 21:39 | Outpatient (CLI) | payer BC, SELFPAY ==
--- NOTE | 2022-05-08 11:23 | DI.RAD_ITS ---
Exam(s) XR WRIST RT COMPLETE EXAM: XR WRIST RT COMPLETE CLINICAL HISTORY: RIGHT WRIST PAIN-M25.53 TECHNIQUE: COMPARISON: No exams were available for comparison FINDINGS: Three views were obtained. There is marked deformity of the navicular and lunate bones with marked f lattening of the bones and there are severe secondary degenerative changes at the radiocarpal joints. Distal carpal row appears fairly well maintained. IMPRESSION: RADIATION DOSE DELIVERED: Total DLP
== END ==
PROVIDERS: PCP Physician Assistant Medical; Visit Provider Physician Assistant Medical
DX: M21.931 Unspecified acquired deformity of right forearm (principal); M19.231 Secondary osteoarthritis, right wrist
CPT/HCPCS: 73110

== ENCOUNTER 2022-09-04 15:30 | Outpatient (REF) | payer BC, SELFPAY ==
[2022-09-04 15:58] LABS: Bilirubin Negative (Negative); Blood Moderate (Negative); Clarity Clear (Clear); Glucose Negative (Negative); Ketones Trace mg/dL (Negative); Leukocyte Esterase Negative (Negative); Nitrite Negative (Negative); Specific Gravity 1.025 (1.005-1.025); Urobilinogen 0.2 EU/dL (Up TO 0.2)
[2022-09-04 16:25] LABS: Bacteria Rare HPF (Negative); C & S Indicated? No; Casts 3-5 Hyaline LPF (Negative); Crystals Negative HPF (Negative); Epithelial Cells Rare HPF (Negative); Mucus Trace (Negative); WBC Negative HPF (0-5)
== END 2022-09-04 15:31 | disposition home or self-care (01) ==
LOC: NCHCN 15:30
PROVIDERS: PCP Physician Assistant Medical; Visit Provider Physician Assistant Medical
DX: R10.9 Unspecified abdominal pain (principal)
CPT/HCPCS: 81003; 81015

== ENCOUNTER 2023-08-06 19:23 | Outpatient (REF) | payer BC, SELFPAY ==
[2023-08-06 15:26] LABS: ALT 24 U/L (16-63); AST 21 U/L (15-37); Albumin 4.2 g/dL (3.4-5.0); Alkaline Phosphatase 77 U/L (46-116); BUN 15 mg/dL (7-18); Bilirubin, Total 0.8 mg/dL (0.2-1.0); CREATININE 0.9 mg/dL (0.70-1.30); Calcium 9.1 mg/dL (8.5-10.1); Calculated LDL 120 mg/dL (<100); Chloride 103 mmol/L (98-107); Cholesterol 209 mg/dL (<200); Estimated GFR 96.57 (mL/min/1.73m2); Glucose 98 mg/dL (74-106); HDL Cholesterol 75 mg/dL (40-60); Potassium 3.9 mmol/L (3.5-5.1); Sodium 138 mmol/L (136-145); Total Protein 7.8 g/dL (6.4-8.2); Triglyceride 70 mg/dL (<150)
--- OUTSIDE RECORDS SUMMARY | 2023-08-06 19:25 | XMS_ITS | Continuity of Care Document ---
Author Name Unknown Organization [facility] Address [address] [place] [id number] Care Team Providers Care Database Administrator Name Role Phone ELBA GARCIA Primary Care Physicia n Encounter [facility] NBR [id number] Date(s): 07/24/22 - 07/24/[address] [address] [place] Discharge Disposition: Home or Self Care Attending Physician: CORBY GERBER Admitting Physician: CORBY GERBER Referring Physician: CORBY GERBER Heart * Event Display: Echo Report Patient Care team information Personnel Name: ELBA GARCIA Address: Address: [address] [id number]
[2023-08-06 22:41] LABS: PSA, Diagnostic 1.3 ng/mL (<=4.5)
== END 2023-08-06 19:24 | disposition home or self-care (01) ==
LOC: NCHCN 19:23
PROVIDERS: PCP Physician Assistant Medical; Visit Provider Physician Assistant Medical
DX: I10 Essential (primary) hypertension (principal); E78.5 Hyperlipidemia, unspecified; N40.1 Benign prostatic hyperplasia with lower urinary tract symptoms
CPT/HCPCS: 80053; 80061; 84153

== ENCOUNTER → 2023-09-10 00:06 | Outpatient (CLI) | payer BC, SELFPAY ==
--- NOTE | 2023-09-10 | ETT_ITS ---
APPROVED REPORT Exam: Exercise Treadmill Patient Location: Out-Patient Room/Bed: Stress Nurse: Genny Adair RN Ordering Provider:ELBA GARCIA, Contact Number: [phone] BMI: 31.47 Baseline Rhythm: Sinus Bradycardia Indications: Palpitations, Medical History Medical History: HTN, HLD, BPH, hx. sinus bradycardia Cardiac Medications: Lisinopril, atorvastatin, symbicort, omeprazole Allergies: Hydrochlorothiazide, metoprolol Cardiac Risk Factors: Family hx. HTN, HLD, former smoker Previous Cardiac Procedures: None Pretest Chest Pain Characteristics: None Exercise History: Indeterminate Physical Disabilities: None Lung Sounds: Clear to auscultation Heart Sounds: Bradycardia Stress Test Details Test: Exercise stress testing was performed using a Mannie protocol. Rest Stress HR Resting HR Supine: 56 bpm Max Heart Rate (APMHR): 158 bpm Resting HR Standin bpm Target HR (85% APMHR): 134 bpm Max HR Achieved: 126 bpm % of APMHR: 80 Recovery HR: 60 bpm HR response to stress: Blunted HR response to stress BP Resting BP Supine: 142/86 mmHg Resting BP Standin/90 mmHg Max BP: 168/78 mmHg Recovery BP: 144/88 mmHg BP response to stress: Normal blood pressure response to stress. ECG Resting ECG: Sinus Bradycardia Ectopy: None Stress ECG: Sinus Tachycardia ST Change: Nondiagnostic low heart rate Arrhythmia: Occasional PVC's Recovery ECG: Sinus Rhythm Recovery ST Change: Nondiagnostic low heart rate Recovery Arrhythmia: Occasional PAC's Clinical Reason for Termination: Unable to reach target heart rate, unable to read EKG due to significant emmy fact Stress Symptoms: None Exercise duration: 09 min15 sec Highest Stage Reached: 3 Exercise capacity: 10.56 METs Angina Score: None Oneal Treadmill Score: 8.3 Rate Pressure Product: [id number] Stress ECG Conclusion 1. 1. Normal clinical response 2. 2. Normal ECG response,no ischemia. Target HR not achieved due to beta brando on board. 3. 3. Normal BP response. 4. 4. Negative for inducible ischemia. Oneal Treadmill Score is 8.3 which is Low risk. Stress Test Summary STAGE Time (mins) Speed (mph) Grade (%) HR BP SpO2 SYMPTOMS METS Supine 56 142/86 95 Standing 56 138/90 1 3 1.7 10 83 160/80 4.5 2 6 2.5 12 96 168/78 7 3 9 3.4 14 114 10 1 min recovery 91 154/80 3 min recovery 59 148/92 6 min recovery 60 144/88 98
== END ==
PROVIDERS: PCP Physician Assistant Medical; Visit Provider Physician Assistant Medical
DX: R00.2 Palpitations (principal)
CPT/HCPCS: 93017

== ENCOUNTER → 2024-01-29 06:11 | Outpatient (CLI) | payer BC, SELFPAY ==
--- NOTE | 2024-01-29 07:54 | DI.RAD_ITS ---
Exam(s) XR SHOULDER RT COMPLETE 2+V EXAM: XR SHOULDER RT COMPLETE 2+V CLINICAL HISTORY: RT SHOULDER PAIN, M25.511. TECHNIQUE: 2D digital imaging was performed. COMPARISON: No exams were available for comparison FINDINGS: Five views. No evidence of fracture nor dislocation nor abnormal soft tissue calcifications in the subacromial sp agustín and subacromial space is not diminished. There are minimal if any significant degenerative turner es in the glenohumeral joint. There are moderate degenerative changes in the AC joint. No osseous l esions. Bone density is normal. IMPRESSION: Degenerative changes noted in the acromioclavicular joint. No other significant radiographic finding s in the shoulder. DATA REPOSITORY: RADIATION DOSE DELIVERED:
== END ==
PROVIDERS: PCP Physician Assistant Medical; Visit Provider Physician Assistant Medical
DX: M19.011 Primary osteoarthritis, right shoulder (principal)
CPT/HCPCS: 73030

== ENCOUNTER 2024-12-22 13:25 | Outpatient (REF) | payer BC, SELFPAY ==
[2024-12-22 17:17] LABS: ALT 29 U/L (16-63); AST 18 U/L (15-37); Albumin 4.1 g/dL (3.4-5.0); Alkaline Phosphatase 74 U/L (46-116); BUN 18 mg/dL (7-18); Bilirubin, Total 0.4 mg/dL (0.2-1.0); CREATININE 1.2 mg/dL (0.70-1.30); Calcium 9.2 mg/dL (8.5-10.1); Calculated LDL 78 mg/dL (<100); Chloride 108 mmol/L (98-107); Cholesterol 169 mg/dL (<200); Estimated GFR 67.53 (mL/min/1.73m2); Glucose 97 mg/dL (74-106); HDL Cholesterol 82 mg/dL (>or=40); Potassium 4.4 mmol/L (3.5-5.1); Sodium 143 mmol/L (136-145); Total Protein 7.2 g/dL (6.4-8.2); Triglyceride 46 mg/dL (<150)
[2024-12-22 17:18] LABS: Hemoglobin A1C 5.4 % (<5.7)
[2024-12-22 22:58] LABS: PSA, Screening 1.5 ng/mL (<=4.5)
== END 2024-12-22 13:26 | disposition home or self-care (01) ==
LOC: NCHCN 13:25
PROVIDERS: PCP Physician Assistant Medical; Visit Provider Physician Assistant Medical
DX: Z12.5 Encounter for screening for malignant neoplasm of prostate (principal); Z13.1 Encounter for screening for diabetes mellitus; E78.5 Hyperlipidemia, unspecified
CPT/HCPCS: 80053; 80061; 84153; 83036

== ENCOUNTER 2025-02-03 14:59 | Outpatient (REF) | payer BC, SELFPAY ==
[2025-02-03 21:28] LABS: Anion Gap 9.3 mmol/L (3-11); BUN 22 mg/dL (7-18); CO2 23.7 mmol/L (21.0-32.0); CREATININE 1.1 mg/dL (0.70-1.30); Calcium 9.2 mg/dL (8.5-10.1); Chloride 104 mmol/L (98-107); Estimated GFR 74.96 (mL/min/1.73m2); Glucose 91 mg/dL (74-106); Potassium 4.3 mmol/L (3.5-5.1); Sodium 137 mmol/L (136-145)
== END 2025-02-03 15:00 | disposition home or self-care (01) ==
LOC: NCHCN 14:59
PROVIDERS: PCP Physician Assistant Medical; Visit Provider Physician Assistant Medical
DX: I10 Essential (primary) hypertension (principal)
CPT/HCPCS: 80048

== ENCOUNTER 2025-04-18 09:23 | Emergency (ER) | payer BC, SELFPAY ==
[2025-04-18 09:26] VITALS: BP 138/87; PULSE 58; RESP 17; TEMP 36.7; O2SAT 95
[2025-04-18 09:29] VITALS: BP 138/87; PULSE 58; RESP 17; TEMP 36.7; O2SAT 95
--- NOTE | 2025-04-18 09:30 | DI.CT_ITS ---
Exam(s) CT RENAL COLIC WO EXAM: CT RENAL COLIC WO CLINICAL HISTORY: right flank pain. TECHNIQUE: Imaging Protocol: Axial computed tomography images with coronal and sagittal reformatted images were created and reviewed. COMPARISON: CT ABD/PELVIS WO W CONTRAST from 10/16/[address] CHEST W from 12/20/[address] ABDOMEN PELVIS W from 12/20/[address] CHEST W from 10/27/2021 FINDINGS: ABDOMEN: Lung Bases: There is a small hiatal hernia. Liver: Normal density. No measurable mass. Gallbladder and biliary tract: The gallbladder is contracted. No stones or biliary ductal dilatation is seen. Pancreas: Normal density, no abnormal calcifications or inflammatory process. Spleen: Normal. Kidneys: Normal size, contour and axis.No radiodense stones or obstructive uropathy. There are bilateral renal cysts. No follow-up is recommended. Adrenal glands: No mass is seen. Lymph nodes: Within normal limits. Abdominal Aorta: Abdominal portion non-dilated. Atherosclerotic calcification is present. PELVIS: Bladder:There is mild thickening of the wall of the urinary bladder. This may be due to underdistention. Cystitis cannot be excluded. Please correlate clinically. Bowel: There is mild diverticulosis, but no evidence of acute diverticulitis. The cecum is located to the left of the midline. There is no evidence of bowel obstruction or bowel wall thickening. Appendix is unremarkable. Peritoneal cavity: No ascites, collection or mesenteric inflammatory response. No free air. Reproductive organs: Unremarkable as visualized. Bones: Within normal limits. There is spondylolysis at L5 without spondylolisthesis. Soft Tissues: There is a small fat containing right inguinal hernia. IMPRESSION: 1. There is no evidence of nephrolithiasis or obstructive uropathy. 2. Mild thickening of the wall of the urinary bladder. This may be due to underdistention, cystitis cannot be excluded. 3. Colonic diverticulosis without evidence of acute diverticulitis. 4. Small hiatal hernia. RADIATION DOSE DELIVERED: 647.67mGy.cm Total DLP DATA REPOSITORY: All CT scans at this facility are submitted to the National Radiology Data Registry (NRDR) Dose Index Registry (DIR) with the [employer] ([employer]). RADIATION OPTIMIZATION: All CT scans at this facility use at least one of these dose optimization techniques: automated exposure control; mA and/or kV adjustment per patient size (includes targeted exams where dose is matched to clinical indication); or iterative reconstruction.
--- NOTE | 2025-04-18 09:42 | W.ED.GENAD ---
Discharge Plan Disposition Patient Disposition: Home Condition: Stable Discharge Details Clinical Impression: Right-sided back pain Primary Care Provider: Junior Sanderson ED Provider: Dylon lAanis Home Meds and New Rx's Prescriptions: New lidocaine 5 % adhesive patch,medicated 1 patch topical DAILY Qty: 30 0RF Rx Instructions: leave on most painful area for up to 12 hrs Continued sildenafil 50 mg tablet 50 mg PO DAILY PRN Rx Instructions: administer 30 minutes to 4 hours before activity tamsulosin [Flomax] 0.4 MG capsule 0.4 mg PO DAILY Fish Oil 1 EACH capsule 1 ea PO DAILY atorvastatin 10 mg tablet 20 mg PO DAILY albuterol sulfate 90 mcg/actuation HFA aerosol inhaler 2 puff inhalation Q6H PRN loratadine [Claritin] 10 mg tablet 10 mg PO DAILY clotrimazole 1 % cream 1 applic topical BID PRN fluticasone propionate 50 mcg/actuation spray,suspension 1 spray intranasal DAILY PRN Rx Instructions: administer into each nostril ibuprofen 200 mg tablet 200 mg PO Q6H PRN montelukast 10 mg tablet 10 mg PO DAILY budesonide-formoterol [Symbicort] 160-4.5 mcg/actuation HFA aerosol inhaler 2 puff inhalation BID losartan 25 mg tablet 25 mg PO DAILY Patient Comments: TAKE ONE TABLET BY MOUTH EVERY DAY omeprazole 40 MG capsule,delayed release(DR/EC) 20 mg PO DAILY@0730 Discharge Instructions Additional Instructions: Your blood work and CAT scan did not show any concerning findings at this time. If your pain is not improving in a week follow-up with your primary care provider. You can take 1000 mg of acetaminophen and 600 mg of ibuprofen every 6 hours as needed. If you feel more ill or have new symptoms such as high fevers return to emergency department for reevaluation. HPI General Mode of arrival: ambulatory. Date/Time Provider Initiated Documentation: 04/18/25 09:24. Limitations to Documentation: no limitations. Information obtained by: patient. History of Present Illness 64 year old M presents to the emergency department with the chief complaint of right flank pain, described as moderate, Quality is described as aching, Patient started experiencing this week(s) (2) and it has been constant. No relieving factors improve symptom(s), No exacerbating factors reported . Patient notes denies chest pain, fever/chills, nausea/vomiting and shortness of breath. Patient did receive the following treatments prior to arrival, NSAID Related Data Home Medications ?Medication ?Instructions ?Recorded ?Confirmed Fish Oil 340 mg-1,000 mg capsule 1 ea PO DAILY 09/27/15 04/18/25 (omega-3 fatty acids-fish oil) Flomax 0.4 mg capsule (tamsulosin) 0.4 mg PO DAILY 09/27/15 04/18/25 sildenafil 50 mg tablet 50 mg PO DAILY PRN 11/24/19 04/18/25 albuterol sulfate 90 mcg/actuation 2 puff inhalation Q6H PRN 01/30/24 04/18/25 aerosol inhaler atorvastatin 10 mg tablet 20 mg PO DAILY 01/30/24 04/18/25 budesonide-formoterol HFA 160 2 puff inhalation BID 01/30/24 04/18/25 mcg-4.5 mcg/actuation aerosol inhaler (Symbicort) clotrimazole 1 % topical cream 1 applic topical BID PRN 01/30/24 04/18/25 fluticasone propionate 50 1 spray intranasal DAILY PRN 01/30/24 04/18/25 mcg/actuation nasal spray,suspension ibuprofen 200 mg tablet 200 mg PO Q6H PRN 01/30/24 04/18/25 loratadine 10 mg tablet (Claritin) 10 mg PO DAILY 01/30/24 04/18/25 montelukast 10 mg tablet 10 mg PO DAILY 01/30/24 04/18/25 lidocaine 5 % topical patch 1 patch topical DAILY #30 ea 04/18/25 losartan 25 mg tablet 25 mg PO DAILY 04/18/25 04/18/25 omeprazole 40 mg capsule,delayed 20 mg PO DAILY@0730 04/18/25 04/18/25 release Previous Rx's ?Medication ?Instructions ?Recorded lidocaine 5 % topical patch 1 patch topical DAILY #30 ea 04/18/25 Allergies Allergy/AdvReac Type Severity Reaction Status Date / Time metoprolol AdvReac Severe Contraindic Unverified 04/18/25 09:30 ated hydrochlorothiazide AdvReac Mild Contraindic Unverified 04/18/25 09:30 ated General Stated Complaint: FlankPain ROSA: 3 Review of Systems All systems reviewed & are unremarkable except as noted in HPI and below Constitutional Constitutional: Denies chills, Denies fever(s) and Denies weakness Cardiovascular Cardiovascular: Denies chest pain and Denies dyspnea Respiratory Respiratory: Denies cough and Denies dyspnea Gastrointestinal Gastrointestinal: Denies abdominal pain, Denies nausea and Denies vomiting Musculoskeletal Musculoskeletal: Reports back pain Neurologic Neurologic: Denies weakness Exam Const General: no acute distress Orientation: alert HENKY Head: normal to inspection Ears: external ears normal General nose exam: external nose normal Mouth: moist mucous membranes Eyes General: appearance normal, both eyes and all related structures Neck Neck: normal visual inspection Resp Effort & Inspection: normal respiratory effort and able to speak in complete sentences Cardio Rate: regular rate GI Palpation: soft and nontender Back/Spine/Pelvis Back: CVA tenderness Skin General skin exam: no rashes or lesions noted Neuro General: patient alert and patient oriented x3 Extrem General: normal to inspection Psych Mental Status: mental status grossly normal Course Vital Signs Vital signs: Vital Signs Temperature 36.7 C 04/18/25 09:26 Pulse 58 L 04/18/25 09:26 Respiratory Rate 17 04/18/25 09:26 Blood Pressure 138/87 04/18/25 09:26 Pulse Oximetry 95 04/18/25 09:26 Temperature 36.7 C 04/18/25 09:29 Temperature Source Oral 04/18/25 09:29 Pulse 58 L 04/18/25 09:29 Respiratory Rate 17 04/18/25 09:29 Blood Pressure 138/87 04/18/25 09:29 Blood Pressure Position Sitting 04/18/25 09:29 Pulse Oximetry 95 04/18/25 09:29 Oxygen Delivery Method Room Air 04/18/25 09:29 Oxygen Flow Rate 0 04/18/25 09:29 Pain Level 4 04/18/25 09:29 Comment Pain increases with movement or deep breathing 04/18/25 09:29 Medical Decision Making 64-year-old male with a history of hypertension and states he has had a kidney stone in the remote past comes in with 2 weeks of right flank pain he localizes to the right CVA area. He denies any vomiting, fevers, chills. He says he has some blood in his urine but he says he gets this frequently. He is well-appearing in no distress. He has no visible or palpable deformities to the right CVA area but is tender in this area. No abdominal tenderness. Given the location of the pain I will check a UA to evaluate for possible pyelonephritis and also check a CBC CMP and lipase and a CT renal colic. Labs and imaging without acute findings. Patient is stable. Suspect musculoskeletal back pain. Advised to follow-up with his PCP if not improving and return precautions given. UA shows no signs of infection so I doubt Arvind Differential Diagnosis Differential Diagnosis: Kidney stone, musculoskeletal back pain, pyelonephritis Medical Records Medical records reviewed: Yes I reviewed the patient's medical records. Lab Data Lab results reviewed: Yes I reviewed the patient's lab results. 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 states it can run between 40-60's bpm is normal per pt. BPH (benign prostatic hyperplasia) Basal cell carcinoma of back Surgical History History of repair of ACL Right H/O melanoma excision H/O umbilical hernia repair EGD - IV Sedation Colonoscopy - IV Sedation Social History Smoking/Tobacco Use Status: Former Tobacco Use Quit Date: 09/09/99 Pack-years: 25 Smoking risk assessment performed?: Yes Alcohol Intake: current Alcohol Intake frequency: a few times a week Alcohol type: beer, wine and hard liquor Details: DRINKS 4 OR MORE TIMES A WEEK AND TYPICALLY 3-4 PER DAY Drug use: Never Substance use type: does not use Details: alcohol: t-1, couple beers Household members: spouse Housing: house Number of Children: 4 number of grandchildren: 3 current occupation: retired Pets and animals: Yes Pets and animals: dog(s) and horse(s) Current gender identity: male Other: retired What is your relationship status?: Panel score (0-1 are the most socially isolated patients): 1 What type of physical activity do you participate in: walking Seatbelt use: always Do you feel safe at home: Yes Do you feel safe in your relationship?: Yes PAWSS Have you Been Recently Intoxicated or Drunk Within the Last 30 days?: No Have you Ever Experienced Previous Episodes of Alcohol Withdrawal?: No Have you ever Experienced Withdrawal Seizures?: No Have you ever Experienced Delirium Tremens(DT)s?: No Have you ever undergone Alcohol Rehabilitation Treatment (i.e, inpt ot outpatient treatment programs)?: No Have you ever Experienced Blackouts?: No Have you ever Combined Alcohol with other Downers within the last 90 days?: No Have you ever Combined Alcohol with any other Substance of Abuse during the last 90 days?: No Result: 0
[2025-04-18] MEDS: Normal Saline 1,000 ML 1000 ML IV (09:55)
[2025-04-18] MEDS: Ketorolac 15 MG/ML VIAL IVP ×2 (09:56→12:00)
[2025-04-18 10:12] LABS: Abs Immature Grans 0.02 10^3/uL (0.0-0.06); HCT 45.5 % (40.0-50.0); HGB 14.9 g/dL (13.5-17.5); Immature Grans % 0.3 %; MCH 28.9 pg (27.0-33.0); MCHC 32.7 % (32.0-36.0); MCV 88 fL (80-95); MPV 9.7 fL (8.0-11.0); Platelet Count 268 10^3/uL (130-400); RBC 5.16 10^6/uL (4.36-5.78); RDW 14.8 % (11.8-14.1); RDW-SD 48.8 fL; WBC 6.08 10^3/uL (4.4-10.8)
[2025-04-18 10:26] LABS: ALT 23 U/L (16-63); AST 16 U/L (15-37); Albumin 4.6 g/dL (3.4-5.0); Alkaline Phosphatase 73 U/L (46-116); Anion Gap 8.1 mmol/L (3-11); BUN 16 mg/dL (7-18); Bilirubin, Total 0.8 mg/dL (0.2-1.0); CO2 27.9 mmol/L (21.0-32.0); Calcium 8.9 mg/dL (8.5-10.1); Chloride 102 mmol/L (98-107); Estimated GFR 84.05 (mL/min/1.73m2); Glucose 147 mg/dL (74-106); Lipase 49 U/L (<78); Magnesium 1.9 mg/dL (1.8-2.4); Potassium 4.2 mmol/L (3.5-5.1); Sodium 138 mmol/L (136-145); Total Protein 7.5 g/dL (6.4-8.2)
[2025-04-18 11:17] LABS: Glucose Negative (Negative)
[2025-04-18 11:25] LABS: WBC 0-2 HPF (0-5)
[2025-04-18 11:26] LABS: C & S Indicated? No
[2025-04-18] MEDS: Lidocaine 5% Patch 1 PATCH TP (12:01)
== END 2025-04-18 12:11 | disposition home or self-care (01) ==
PROVIDERS: Emergency Provider Emergency Medicine; PCP Physician Assistant Medical
DX: R10.31 Right lower quadrant pain (principal); Z87.442 Personal history of urinary calculi
CPT/HCPCS: 36415; 80053; 83690; 96361; 96374; 96376; 99284; 74176; 81003; 81015; 83735; 85025; 99283; J1885